=== PATIENT | female | born 1990 | race Two or more races ===

== ENCOUNTER 2025-08-10 09:47 | Inpatient (IN) | payer BC ==
[2025-08-10] MEDS ORDERED: Citric Acid/Sodium Citrate Solution 30 ML Cup PO ONE (09:57)
[2025-08-10] MEDS ORDERED: Sodium Chloride 0.9% 10 ML Syringe FLUSH PRN (09:57)
[2025-08-10] MEDS ORDERED: Oxytocin/0.9 % Sodium Chloride 30 UNIT/500 ML BAG IV SCH (10:00)
[2025-08-10] MEDS ORDERED: Lactated Ringers 1,000 ML IV SCH (10:00)
[2025-08-10] MEDS ORDERED: Morphine PF 10 MG/10 ML SDV ONE (10:25)
[2025-08-10] MEDS ORDERED: Ondansetron 4 MG/2 ML SDV ONE (10:26)
[2025-08-10] MEDS ORDERED: diphenhydrAMINE 50 MG/ML SDV IVPUSH PRN ×2 (10:54→14:43)
[2025-08-10] MEDS ORDERED: fentaNYL 100 MCG/2 ML SDV IVPUSH PRN (10:54)
[2025-08-10] MEDS ORDERED: Ondansetron 4 MG/2 ML SDV IVPUSH PRN (10:54)
[2025-08-10] MEDS: Lactated Ringers 1,000 ML IV SCH (11:36)
[2025-08-10] MEDS: Citric Acid/Sodium Citrate Solution 30 ML Cup PO ONE (11:36)
[2025-08-10] MEDS ORDERED: Lactated Ringers 1,000 ML ONE (12:16)
[2025-08-10] MEDS ORDERED: Oxytocin 10 Units/1 ML SDV ONE (12:24)
[2025-08-10] MEDS ORDERED: Ketorolac 30 MG/ML SDV ONE (12:24)
[2025-08-10] MEDS ORDERED: ePHEDrine 50 MG/ML SDV IVPUSH PRN (14:43)
[2025-08-10] MEDS ORDERED: Naloxone 0.4 MG/ML SDV IVPUSH PRN (14:43)
[2025-08-10] MEDS ORDERED: Acetaminophen/oxyCODONE 325-5 MG Tab PO PRN ×2 (14:43)
[2025-08-10] MEDS: Ketorolac 30 MG/ML SDV IVPUSH SCH (18:34)
[2025-08-10] MEDS ORDERED: Sodium Chloride 0.9% 10 ML Syringe FLUSH SCH (21:00)
[2025-08-11 05:43] LABS: BASOPHILS ABSOLUTE AUTO 0.0 K/mm3 (0.0-0.2); BASOPHILS PERCENT AUTO 0.3 % (0.0-1.0); EOSINOPHILS ABSOLUTE AUTO 0.1 K/mm3 (0.0-0.4); EOSINOPHILS PERCENT AUTO 0.6 % (0.0-6.0); IMMATURE GRAN ABSOLUTE AUTO 0.05 K/mm3 (0.00-0.05); IMMATURE GRAN PERCENT AUTO 0.4 % (0.0-0.4); LYMPHOCYTES ABSOLUTE AUTO 1.6 K/mm3 (1.0-4.8); LYMPHOCYTES PERCENT AUTO 13.5 % (24.0-44.0); MEAN PLATELET VOLUME 10.9 fl (9.4-12.3); MONOCYTES ABSOLUTE AUTO 0.4 K/mm3 (0.0-0.8); MONOCYTES PERCENT AUTO 3.6 % (0.0-8.0); NEUTROPHILS ABSOLUTE AUTO 9.9 K/mm3 (1.8-7.7); NEUTROPHILS PERCENT AUTO 81.6 % (41.0-71.0); NRBC ABSOLUTE 0.00 (0.00-0.02); NRBC PERCENT 0.0 % (0.0-0.2); PLATELET COUNT,PLT 241 K/mm3 (150-400); RED BLOOD CELL COUNT 3.91 M/mm3 (4.10-5.30); WHITE BLOOD CELL COUNT,WBC 12.15 K/mm3 (3.9-11.3)
== END 2025-08-12 17:58 | disposition home or self-care (01) | DRG 540 ==
LOC: JD.OB 09:47 → OBSVTOIN 09:57
PROVIDERS: ADMIT Obstetrics & Gynecology; ATTEND Obstetrics & Gynecology
PROC: 3E033VJ Introduction of Other Hormone into Peripheral Vein, Percutaneous Approach (ICD-10-PCS; 2025-08-10)
PROC: 10D00Z1 Extraction of Products of Conception, Low, Open Approach (ICD-10-PCS; principal; 2025-08-10 12:00)
DX: O34.219 Maternal care for unspecified type scar from previous cesarean delivery (principal); Z3A.39 39 weeks gestation of pregnancy; Z37.0 Single live birth
CPT/HCPCS: 01961; 36415; 59025; 85025; 86592; 86850; 86900; 86901; 94762; A9270-GY; J0456; J0690; J1885; J2274; J2405; J2590; J2765; J7050; J7120; J7121